=== PATIENT | female | born 1980 | race Caucasian/White ===

== ENCOUNTER 2017-12-01 16:29 | Emergency (ER) | payer OTHER ==
[~2017-12-01 16:29] MED LIST: IBUP600 PO; LEVO150T7 PO; PRENCAP6 PO
--- NOTE | 2017-12-01 18:05 | PD ---
HPI Chief Complaint Bleeding Date Seen: Dec 01, 2017 Time Seen: 17:00 Travel History International Travel<30 Days: No Contact w/Intl Traveler<30Days: No Known Affected Area: No History of Present Illness HPI 37-year-old 2 para 1 at 21 weeks 4 days gestation by last menstrual period and 16 week ultrasound who comes tonight complaining of light bleeding. She denies cramping. She reports movement. Para: 2 : 1 Last Menstrual Period: Jul 05, 2017 Miscarriage: 0 : 0 History Past Medical History Medical History: Denies Significant Hx Obstetric History Obstetric History One prior term vaginal delivery Current under the care of Dr. Bartlett. We do not have access to her record at this gestational age. She was treated recently for urinary tract infection and finished those antibiotics today. Past Surgical History Narrative Surgical Cholecystectomy Family History Family History: Negative Social History Alcohol Use: No Tobacco Use: No Substance Abuse: No Allergies-Medications (Allergen,Severity, Reaction): Coded Allergies: No Known Allergies (Unverified , 05/14/14) Home Meds Active Scripts Ibuprofen (Motrin 600 Mg Tab) 600 Mg Tab, 600 MG PO Q6H Y for CRAMPING, #20 TAB 1 Refill Prov:Constantino Bartlett MD 05/28/15 Reported Medications Mv & Min W/Fe Fumarat ( 1) Cap, 1 CAP PO DAILY, CAP 05/25/15 Levothyroxine Sodium (Levothyroxine 150 mcg) 150 Mcg Tab, 150 MCG PO DAILY, TAB 05/25/15 Review of Systems Except as stated in HPI: all other systems reviewed are Neg Physical Exam Narrative GENERAL: Well-nourished, well-developed patient. SKIN: Warm and dry. HEAD: Normocephalic and atraumatic. EYES: No scleral icterus. No injection or drainage. ENT: No nasal drainage noted. Mucous membranes pink. Airway patent. NECK: Supple, trachea midline. No JVD. CARDIOVASCULAR: Regular rate and rhythm without murmurs, gallops, or rubs. RESPIRATORY: Breath sounds equal bilaterally. No accessory muscle use. ABDOMEN/GI: Abdomen soft, non-tender, bowel sounds present, no rebound, no guarding Gravid to [-] weeks size Fundal Height: [-20] GENITOURINARY: External Genitalia: intact and normal in appearance BUS glands: [-Negative] Cervix: [-] Dilatation: [Closed-] Effacement: [Long-] Station: [High-] Presentation: [Undetermined-] Membranes: [On speculum examination there is a small amount of blood mixed with clear fluid which is obviously coming from the cervix. Amnio sure was positive] Uterine Contractions: [-None] FHT's: Category: [-] Baseline: [-140] Reactive: [-] Variability: [-] Decels: [-] EXTREMITIES: No cyanosis or edema. BACK: Nontender without obvious deformity. No CVA tenderness. NEUROLOGICAL: Awake and alert. Motor and sensory grossly within normal limits. Five out of 5 muscle strength in all muscle groups. Normal speech. Data Data Vital Signs Reviewed: Yes MDM Medical Record Reviewed: Yes Narrative Course / MDM Assessment: 37-year-old female at 21 weeks 4 days gestation with premature rupture membranes Plan: I discussed patient with Dr. Brown at [facility] in [place] regarding the tiny baby initiative. He indicated that the patient would not be enrolled in this program until 22 weeks gestation. Triage at their facility and assessment for observation status was offered and accepted by the patient. Dr. Brown confirmed that no latency antibiotics or steroids should be initiated at this time. He also recommended private vehicle transportation since there is not any evidence of labor at this time. Diagnosis Diagnosis: Primary Impression: 21 weeks gestation of Additional Impression: premature rupture of membranes (PPROM) with onset of labor after 24 hours of rupture in second trimester, antepartum Disposition: 01 DISCHARGE HOME Condition: Stable Constantino Kaminski MD Dec 01, 2017 18:05
== END 2017-12-01 18:00 | disposition home or self-care (01) ==
LOC: HOBED 16:29
DX: O42.112 Preterm premature rupture of membranes, onset of labor more than 24 hours following rupture, second trimester (principal); Z3A.21 21 weeks gestation of pregnancy
CPT/HCPCS: 84112; 99284